=== PATIENT | female | born 2000 | race Caucasian/White ===

== ENCOUNTER 2020-10-01 17:24 | Outpatient (CLI) | payer MEDICAID ==
[~2020-10-01] VITALS: Ht 172.7 cm; Wt 115.9 kg
--- NOTE | 2020-10-01 17:40 | NUR ---
Patient ambulatory onto unit with mother at side for labor check. Patient states "I think I'm having contractions and I think my water broke." Patient reports good movement, denies vaginal bleeding. , 38.1wks. GBS-. EFMs on, VS taken. SVE /-2. AmniTrace negative. Assessment completed by Radha YAÑEZ. ure notified by this RN.
[2020-10-01 17:49] VITALS: BP 138/82; PULSE 130; TEMP 98.4
[2020-10-01] MEDS ORDERED: PRENATAL (17:56)
[2020-10-01] MEDS ORDERED: PROMETHAZINE12.5 M5 (17:57)
[2020-10-01 18:00] VITALS: BP 128/79; PULSE 108
--- NOTE | 2020-10-01 18:15 | NUR ---
Report received from Karen YAÑEZ. 1854: Pt sitting up in bed and FHR tracing mothers heart rate. 1856: SVE unchanged and amniotrace negative X2 per Rick YAÑEZ. Plan of care explained to pt and pt denies any questions at this time. 1907: called and updated. Discharge orders received. 1912: Pt off monitors to change into clothes. 1924: Discharge instructions explained and stressed importance of making follow up apt for EKG. Pt verbalizes her understanding. Pt and mother ambulatory off unit and discharged home.
[2020-10-01 18:30] VITALS: BP 128/79; PULSE 108
[2020-10-01 19:13] VITALS: BP 121/79; PULSE 116
== END 2020-10-01 19:25 | disposition home or self-care (01) ==
LOC: LDRO 17:24
DX: Z34.83 Encounter for supervision of other normal pregnancy, third trimester (principal); Z3A.38 38 weeks gestation of pregnancy

== ENCOUNTER 2020-10-09 04:05 | Inpatient (IN) | payer MEDICAID ==
[~2020-10-09] VITALS: Ht 172.7 cm; Wt 117.3 kg
[2020-10-09] VITALS (26 sets, daily range): BP systolic 117–144; BP diastolic 59–88; PULSE 66–134; TEMP 97.2–99.3
[~2020-10-09 04:05] MED LIST: PRENATAL; PROMETHAZINE12.5 M5
--- NOTE | 2020-10-09 04:10 | NUR ---
Pt arrived on unit via wheelchair escorted by her mother and with complaints of contractions every 2 minutes since 2330 and SROM at 0350. EFM and toco monitors started. SVE by this RN with positive amnio-trace and meconium fluid. Information reviewed with Dr. Anthony. Orders for labor admission received. Plan of care reviewed with pt and mother at the bedside.
[2020-10-09] MEDS ORDERED: ZOLOFT 50MG50 MG PO (04:14)
--- NOTE | 2020-10-09 04:50 | NUR ---
Intermittent FHR tracing due to maternal size. Frequent attempts to adjust monitor.
[2020-10-09 04:52] LABS: BASO % 0.2 % (0.0-2.0); EOS % 0.4 % (0-4.0); GRAN % 65.3 % (42.2-75.2); LYMPH # 2.2 (1.2-3.4); LYMPH % 23.8 % (20.0-51.0); MEAN CELL VOLUME 78 fl (80.0-100.0); MEAN CORPUSCULAR HGB CONC 31 g/dl (33.0-37.0); MEAN PLATELET VOLUME 9.3 fl (7.4-10.4); MONO # 0.9 (0.1-0.6); MONO % 9.8 % (1.7-9.3); PLATELET COUNT 281 K/mm3 (130-400); RED BLOOD COUNT 4.08 M/mm3 (4.10-5.30)
[2020-10-09 05:06] LABS: HEMATOCRIT 31.7 % (37.0-47.0); HEMOGLOBIN 9.7 g/dl (12.5-16.0); MEAN CORPUSCULAR HEMOGLOBIN 24 pg (27.0-31.0)
--- NOTE | 2020-10-09 05:06 | NUR ---
0506- KLEBER Cha at the bedside for epidural placement. Pt sitting up on the edge of the bed. Time out completed. 0513- Single shot done per KLEBER Cah. See anesthesia records for details. 0514- Test dose done per KLEBER Cha. See anesthesia records for details. 0520- Assisted pt back to supine position with left wedge.
--- NOTE | 2020-10-09 06:00 | NUR ---
0600- Bedside report received from Gavin Jean RN. 0645- Rowe catheter placed using sterile technique. SVE by this RN AL/+1. Mary care provided and patient wedge right. Dr. Alonzo updated. See physician notification. FHR with minimal variability, no decels. LR bolus. 0715- Patient reports increased rectal pressure. SVE C/+1. Dr. Alonzo upadated. See physician notification. Plan of care reviewed with patient and family who verbalize understanding. 0730- Raymond De La Garza INVENTORY TAKER at bedside to bolus epidural. See anesthesia record.
--- NOTE | 2020-10-09 08:20 | NUR ---
0820- Phone call received from Dr. Alonzo. See anesthesia record. 0825- Rowe catheter removed. Patient instructed on pushing with contractions. 0830- Patient begins to push with contractions. Strong maternal effort noted. decent noted. 0840- [place] adjusted. 0850- Dr. Alonzo at bedside to evaluate pushing efforts. Patient continues to push with contractions with Dr. Alonzo at bedside. decent noted. 0855- Dr. Alonzo leaves bedside. 0905- Dr. Alonzo at bedside to evaluate patient. Patient repostioned for delivery. 0915- Spontaneous vaginal delivery of viable female . Nuchal cord x2 reduced on perineum. Cord clamped x2 and cut. To mother's chest where dried and stiumlated by Rob Crane RN who assumes care of at this time. Umbilical cord gases, cord blood collected by Dr. Alonzo. 0920- Spontaneous delivery of placenta. Pitocin started at 333ml/hr per protocol. MEU of uterus by Dr. Alonzo. Left labial laceration repaired by Dr. Alonzo. 0925- Epidural bolused by Raymond De La Garza PRE SALES TECHNICAL ENGINEER per Dr. Alonzo. MEU by Dr. Alonzo. Mary care provied, pads changed, and ice pack to perinuem. Fundus firm, midline, moderate amount of bleeding with small clot expressed. Dr. Alonzo in room and notified. Plan of care and safety precautions reviewed with patient and family who verbalize understanding. See doctor dictation, anestheia record, and nurses notes.
--- NOTE | 2020-10-09 11:15 | NUR ---
1115- Fundus firm, midline, and bleeding minimal. Patient assisted to sit on edge of bed. Denies any dizziness or lightheadedness. Epidural catheter removed. Ambulatory to bathroom with assist x1. Unable to void at this time. Mary care provided, gown changed, and ice pack to perineum. Ambulatory to room 209 with SBA. Oriented to room and plan of care. Instructed drink water and attemp to void in one hour. Patient verbalizes understanding. Resting peacefully with call light within reach.
[2020-10-10 00:15] VITALS: BP 144/79; PULSE 85; TEMP 98.6
[2020-10-10 08:20] VITALS: BP 132/76; PULSE 86; TEMP 98.5
--- NOTE | 2020-10-10 08:40 | NUR ---
Initial visit; Patient thanked Hair Spinner for offering congratulations and God's blessings for the of her daughter. Hair Spinner thanked patient for choosing [facility].
--- NOTE | 2020-10-10 09:47 | NUR ---
CALEB responded to consult for SI. CALEB met with patient and patients mother in the room (208). Patient reports that she has a hx of depression and was having a sullen mood. Patient reports that she had medicaitons Sertetraline and will restart the medications upon return home. Patient reports that she resides with her mother at [address] [id number]. Patient reports that FOB is involved and resides at [address] [place] [address]. Patient indicated that he she has a supplies and mother will help support her. Patient is wanting to go home, plans to breastfeed. Has car seat for baby. Denies having any safety concern for baby. Education patient on and services available to her. Will continue to follow for needs.
--- NOTE | 2020-10-10 14:14 | NUR ---
1240 DISCHARGE INSTRUCTIONS REVIEWED WITH PATIENT AND PATIENT'S MOTHER. BOTH VERBALIZED UNDERSTANDING. WILL NOTIFY THIS RN WHEN READY TO LEAVE. 1320 ALL PERSONAL BELONGINGS GATHERED FROM PATIENT ROOM. PATIENT LEFT AMBULATORY AND IN NO APPARENT DISTRESS. PATIENT ACCOMPANIED BY HER MOTHER AND NURSING STAFF.
== END 2020-10-10 13:20 | disposition home or self-care (01) | DRG 807 ==
LOC: LDRO 04:05 → OB 04:30 → LDR 04:30 → OB 11:15
PROVIDERS: Obstetrics & Gynecology; ADMIT Student in an Organized Health Care Education/Training Program
PROC: 10E0XZZ Delivery of Products of Conception, External Approach (ICD-10-PCS; principal; 2020-10-09)
PROC: 0UQMXZZ Repair Vulva, External Approach (ICD-10-PCS; 2020-10-09)
DX: O48.0 Post-term pregnancy (principal); Z37.0 Single live birth; O77.0 Labor and delivery complicated by meconium in amniotic fluid; Z3A.40 40 weeks gestation of pregnancy; O99.214 Obesity complicating childbirth; E66.9 Obesity, unspecified; O99.344 Other mental disorders complicating childbirth; F32.9 Major depressive disorder, single episode, unspecified; O70.0 First degree perineal laceration during delivery; O69.81X0 Labor and delivery complicated by cord around neck, without compression, not applicable or unspecified
CPT/HCPCS: J2400; J2405; J2590; J2795; J7120

== ENCOUNTER 2022-11-24 23:41 | Outpatient (CLI) | payer MEDICAID ==
[~2022-11-24] VITALS: Ht 167.6 cm; Wt 127.7 kg
[~2022-11-24 23:41] MED LIST changes: +LATUDA40 MG PO; +ZOLOFT 50MG50 MG PO
[2022-11-25 00:30] VITALS: BP 112/62; PULSE 125; TEMP 98
--- NOTE | 2022-11-25 00:30 | NUR ---
2350: Pt ambulated onto unit, accompanied by pt mother, with belongings in tow. Pt oriented to LR5 and changed into exam gown. 0000: Pt on external monitors x2. FHR and ctx tracing intermittently due to maternal habitus. This nurse at pt bedside palpating pt abdomen, with pt consent and explanation, attempting to readjust external monitors x2. 0007: SVE, with pt consent and explanation, closed and high. 0029: Pt puking.
[2022-11-25] MEDS ORDERED: QUALITY CHOICE1 TA7 (00:55)
[2022-11-25 01:00] VITALS: BP 114/62; PULSE 121
[2022-11-25 01:30] VITALS: BP 128/69; PULSE 113
--- NOTE | 2022-11-25 01:30 | NUR ---
FHR and ctx tracing intermittently due to maternal habitus. This nurse at pt bedside palpating pt abdomen, with pt consent and explanation, attempting to readjust external monitors x2. 0107: IV 18G to RH, LR 1 administered. Pt tolerated procedure well. [id number]: Pt puking. 0119: Zofran and Benadryl administered.
[2022-11-25 02:00] VITALS: BP 127/73; PULSE 96
--- NOTE | 2022-11-25 02:00 | NUR ---
FHR and ctx tracing intermittently due to maternal habitus. This nurse at pt bedside palpating pt abdomen, with pt consent and explanation, attempting to readjust external monitors x2. 0046: Dr. Anthony calls this nurse for pt update. See physician notification for further details.
[2022-11-25 02:11] VITALS: BP 126/70; PULSE 100
--- NOTE | 2022-11-25 02:11 | NUR ---
FHR and ctx tracing intermittently due to maternal habitus. This nurse at pt bedside palpating pt abdomen, with pt consent and explanation, attempting to readjust external monitors x2. 0211: Pt off external monitors x2 and changed into civilian clothing.
--- NOTE | 2022-11-25 02:32 | NUR ---
Pt POC and DC discussed with pt. Pt educated on returning to unit if consistent and persistent contractions, vaginal bleeding, and/or leaking/gushing of fluids occur. Pt informed to keep all scheduled appointments and to take Tylenol/Benadryl for pain/sleep management, per bottle instructions. DC consent signed, witnessed, and obtained. Questions, concerns, and needs encouraged. Pt verbalizes understanding and agreement of POC and DC with "no" questions, concerns, or needs. Pt ambulated off unit, accompanied by pt mother with belongings in tow, with DC paperwork and health summary in hand at 0232.
[2022-11-26] MEDS ORDERED: ZOFRAN ODT4 MG PO (14:09)
[2022-11-26] MEDS ORDERED: PROTONIX20 MG PO (14:09)
== END 2022-11-25 02:32 | disposition home or self-care (01) ==
LOC: LDRO 23:41
DX: O47.03 False labor before 37 completed weeks of gestation, third trimester (principal); Z3A.30 30 weeks gestation of pregnancy; Z20.822 Contact with and (suspected) exposure to COVID-19
CPT/HCPCS: J1200; J2405; J7120

== ENCOUNTER 2022-11-25 11:21 | Outpatient (CLI) | payer MEDICAID ==
[~2022-11-25] VITALS: Ht 172.7 cm; Wt 127.7 kg
[~2022-11-25 11:21] MED LIST changes: +QUALITY CHOICE1 TA7
--- NOTE | 2022-11-25 11:44 | NUR ---
Pt arrived on unit via wheelchair and with concerns for elevated HR. Pt reports she was seen last night for issues with nausea, vomiting and contractions. Pt reports waking up this morning with an elevated HR and occasional contractions. EFM and toco monitors started. Dr. Kent notified. See physician notification for details.
[2022-11-25 12:45] VITALS: BP 110/56; PULSE 130; TEMP 99.4
[2022-11-25 12:55] LABS: COLLECTION METHOD CLEAN CATCH
[2022-11-25 12:59] LABS: BASO % 0.1 % (0.0-2.0); GRAN # 5.7 K/mm3 (1.4-6.5); GRAN % 83.1 % (42.2-75.2); HEMOGLOBIN 11.7 g/dl (12.5-16.0); LYMPH # 0.6 K/mm3 (1.2-3.4); LYMPH % 8.6 % (20.0-51.0); MEAN CELL VOLUME 83 fl (80.0-100.0); MEAN CORPUSCULAR HEMOGLOBIN 27 pg (27-31); MEAN CORPUSCULAR HGB CONC 32 g/dl (33.0-37.0); MONO # 0.5 K/mm3 (0.1-0.6); MONO % 7.6 % (1.7-9.3); PLATELET COUNT 218 K/mm3 (130-400); RED BLOOD COUNT 4.39 M/mm3 (4.10-5.30); REDCELL DISTRIBUTION WIDTH-CV 14.5 % (11.5-14.5)
[2022-11-25 13:00] LABS: HEMATOCRIT 36.2 % (37.0-47.0)
[2022-11-25 13:03] LABS: MUCOUS Present (NOT PRESENT); URINE BACTERIA Rare /hpf (NONE SEEN); URINE RBC 0-2 /hpf (0-2)
[2022-11-25 13:05] LABS: URINE APPEARANCE Clear (CLEAR/HAZY); URINE COLOR Amber (YELLOW); URINE PROTEIN(semi-quant) 1+ (NEGATIVE)
[2022-11-25 13:06] LABS: URINE BLOOD Negative (NEGATIVE); URINE GLUCOSE Negative (NEGATIVE); URINE KETONE 1+ (NEGATIVE); URINE NITRATE Negative (NEGATIVE); URINE UROBILINOGEN 0.2 E.U/dL (0.2-1.0)
[2022-11-25 13:24] LABS: ALBUMIN 2.6 gm/dL (3.5-5.0); BILIRUBIN,TOTAL 0.5 mg/dL (0.2-1.2); CALCIUM 8.3 mg/dL (8.4-10.2); CREATININE, serum 0.63 mg/dL (0.57-1.11); POTASSIUM 3.5 mmol/L (3.5-4.5); TOTAL PROTEIN 6.5 gm/dL (6.2-8.1)
[2022-11-25 13:45] VITALS: PULSE 124
[2022-11-25 14:45] VITALS: BP 122/69; PULSE 111; TEMP 99.4
[2022-11-25 15:43] VITALS: PULSE 114
--- NOTE | 2022-11-25 15:55 | NUR ---
Discharge instructions and follow up care reviewed with pt. Pt verbalized an understanding, agreed with the plan and states no questions or concerns at this time.
[2022-11-26] MEDS ORDERED: PROTONIX20 MG PO (14:09)
[2022-11-26] MEDS ORDERED: ZOFRAN ODT4 MG PO (14:09)
== END 2022-11-25 16:00 | disposition home or self-care (01) ==
LOC: LDRO 11:21 → COL.ER 11:21 → EDSTATUS 11:51 → LDRO 16:00
PROVIDERS: Obstetrics & Gynecology
DX: O76 Abnormality in fetal heart rate and rhythm complicating labor and delivery (principal); Z3A.30 30 weeks gestation of pregnancy
CPT/HCPCS: J7030

== ENCOUNTER 2022-11-26 12:05 | Outpatient (CLI) | payer MEDICAID ==
[~2022-11-26] VITALS: Ht 172.7 cm; Wt 127.7 kg
--- NOTE | 2022-11-26 12:40 | NUR ---
PT AMBULATORY TO LR2. CHANGED INTO CLEAN GOWN. FHR MONITOR/TOCO APPLIED. PT COMPLAINING OF SPOTS IN EYES, HEADACHE, AND FLUTTERING HEART/CHEST PAIN. PT DENIES VAGINAL BLEEDING, CONTRACTIONS, LEAKING OF FLUID, OR DECREASED MOVEMENT. VITAL SIGNS WNL. AFEBRILE. THIS RN GIVES REPORT TO DR MANDEL WHO IS ON UNIT AT LABOR DESK. DR MANDEL GIVING VERBAL ORDERS FOR PT.
--- NOTE | 2022-11-26 12:45 | NUR ---
DR MANDEL ON UNIT. ORDERS GIVEN VERBALLY
[2022-11-26 13:15] VITALS: PULSE 120
[2022-11-26 13:27] LABS: HEMOGLOBIN 11.2 g/dl (12.5-16.0); MEAN CELL VOLUME 82 fl (80.0-100.0); MEAN CORPUSCULAR HEMOGLOBIN 27 pg (27-31); MEAN CORPUSCULAR HGB CONC 33 g/dl (33.0-37.0); MEAN PLATELET VOLUME 9.3 fl (7.4-10.4); PLATELET COUNT 218 K/mm3 (130-400); REDCELL DISTRIBUTION WIDTH-CV 14.4 % (11.5-14.5)
[2022-11-26 13:28] LABS: HEMATOCRIT 34.4 % (37.0-47.0)
[2022-11-26 13:45] VITALS: BP 121/76; PULSE 108; TEMP 98.9
[2022-11-26 13:55] LABS: ALBUMIN 2.6 gm/dL (3.5-5.0); BILIRUBIN,TOTAL 0.3 mg/dL (0.2-1.2); CALCIUM 8.4 mg/dL (8.4-10.2); CREATININE, serum 0.55 mg/dL (0.57-1.11); POTASSIUM 3.4 mmol/L (3.5-4.5); TOTAL PROTEIN 6.3 gm/dL (6.2-8.1)
[2022-11-26] MEDS ORDERED: ZOFRAN ODT4 MG PO (14:09)
[2022-11-26] MEDS ORDERED: PROTONIX20 MG PO (14:09)
--- NOTE | 2022-11-26 14:20 | NUR ---
DR MANDEL ON UNIT AT LABOR DES. RECOMMENDS PT GO BACK TO OR FOR EKG. CAN BE DISCHARGED FROM THIS UNIT. PROTONIX AND ZOFRAN ORDER SENT OFF TO PT'S PHARMACY FROM DR MANDEL.
--- NOTE | 2022-11-26 14:20 | NUR ---
1410 THIS RN HOLDING FHR MONITOR ON. THIS RN CAN HEAR AUDIBLE MOVEMENT AMD KICKS.
[2022-11-26 14:25] VITALS: BP 117/80; PULSE 97
== END 2022-11-26 14:40 | disposition home or self-care (01) ==
LOC: LDRO 12:05
PROVIDERS: Student in an Organized Health Care Education/Training Program
DX: O26.893 Other specified pregnancy related conditions, third trimester (principal); H53.8 Other visual disturbances; R51.9 Headache, unspecified; R07.9 Chest pain, unspecified; Z3A.30 30 weeks gestation of pregnancy
CPT/HCPCS: J2405; J7120